=== PATIENT | male | born 1985 | race African-American/Black ===

== ENCOUNTER → 2018-10-08 | Outpatient (REF) | payer OTHER ==
[2018-10-08 10:26] LABS: SEMEN APPEARANCE OPAQUE (OPAQUE); SEMEN VISCOSITY LIQUID (LIQUID); SEMEN VOLUME 3.5 ml (2.0-5.0); WBC CONCENTRATION <=1 M/ml (<=1 M/ml)
[2018-10-08 10:27] LABS: SPERM CONCENTRATION 61.4 M/ml (>=15.0)
== END ==
LOC: M LAB REF 10:15
PROVIDERS: ATTEND Physician Assistant
DX: Z31.41 Encounter for fertility testing (principal)

== ENCOUNTER → 2018-11-02 | Outpatient (REF) | payer OTHER ==
[2018-11-02 12:41] LABS: SEMEN APPEARANCE OPAQUE (OPAQUE); SEMEN VISCOSITY LIQUID (LIQUID); SEMEN VOLUME 4.2 ml (2.0-5.0); WBC CONCENTRATION <=1 M/ml (<=1 M/ml)
[2018-11-02 12:42] LABS: SPERM CONCENTRATION 47.6 M/ml (>=15.0)
== END ==
LOC: M LAB REF 11:41
PROVIDERS: ATTEND Physician Assistant
DX: Z31.41 Encounter for fertility testing (principal)